=== PATIENT | male | born 2000 | race Caucasian/White ===

== ENCOUNTER → 2022-06-04 | Outpatient (CLI) | payer OTHER ==
--- NOTE | 2022-06-04 16:39 | CT ---
EXAMINATION TYPE: CT ankle LT wo con CT DLP: 312.3 mGycm, Automated exposure control for dose reduction was used. DATE OF EXAM: 06/04/2022 4:28 PM COMPARISON: . None CLINICAL INDICATION:Male, 21 years old with history of S82.302A UNSP FRACTURE OF LOWER END OF LEFT TI ARIE,; PHH, FRACTURE OF LOWER END OF LEFT TIBIA TECHNIQUE: Axial images were obtained of the left ankle . Additional coronal and sagittal reformatte d images and soft tissue and bone window were obtained for review. 3-D reconstruction was created on a separate workstation. Contrast used: None Oral contrast used: None FINDINGS: There are fractures of the distal left tibia and fibula. The oblique fracture through the d istal tibia extending from the metadiaphysis towards the distal aspect of the fibula with mild displa cement up to 4 mm. The distal tibia demonstrates comminuted fracture involving the medial malleolus which extends into t he posterior tibial plafond. There is mild depression of the fragments of the articular surface of th e distal tibia. There is soft tissue swelling throughout the foot. IMPRESSION: Trimalleolar fracture with intra-articular extension with a comminuted tibia fracture and somewhat ob liquely oriented fibular fracture. Mild depression of the fracture fragments of the tibia noted.
== END | disposition home or self-care (01) ==
LOC: RADCTMAIN 15:52
PROVIDERS: ATTEND Orthopaedic Surgery
DX: S82.832A Other fracture of upper and lower end of left fibula, initial encounter for closed fracture (principal); S82.392A Other fracture of lower end of left tibia, initial encounter for closed fracture; X58.XXXA Exposure to other specified factors, initial encounter

== ENCOUNTER → 2022-06-06 | Day surgery (SDC) | payer OTHER ==
[2022-06-05 10:06] VITALS: BMI 22.2
[~2022-06-06] MED LIST: DEXAMETHASONE SOD PHOSPHATE 4 MG/ML 1 ML VIAL IVP ONE; DEXAMETHASONE SOD PHOSPHATE 4 MG/ML 1 ML VIAL ONE; HYDROmorphone (PF) 1 MG/ML ONE; HYDROmorphone 0.5 MG/0.5 ML SYRINGE IVP PRN; KETOROLAC 15 MG/ML 1 ML VIAL IVP ONE; LACTATED RINGERS 1,000 ML IV ONE; LACTATED RINGERS 1,000 ML IV SCH; LIDOCAINE 1% (10MG/ML) FOR IV START INTRADERMA PRN; LIDOCAINE 2% INJ 20 MG/ML (2 ML VIAL) ONE; MIDAZOLAM 2 MG/2 ML VIAL IVP ONE; MIDAZOLAM 2 MG/2 ML VIAL ONE; ONDANSETRON 4 MG/2 ML VIAL IVP ONE; PHENYLEPHRINE-0.9% NACL SYG 1,000 MCG/10 ML SYRINGE ONE; PROPOFOL 10 MG/ML 20 ML VIAL IV ONE; ROPIVACAINE 5 MG/ML 30 ML VIAL ONE; SUCCINYLCHOLINE CHLORIDE 200 MG/10 ML VIAL IV ONE; ePHEDrine 50 MG/ML 1 ML VIAL ONE; fentaNYL (PF) 50 MCG/ML 2 ML AMP IVP ONE; fentaNYL (PF) 50 MCG/ML 2 ML AMP ONE
[2022-06-06 12:24] LABS: Basophils # (A) 0.1 k/uL (0-0.2); Basophils % (A) 1 %; Eosinophils # (A) 0.6 k/uL (0-0.7); Eosinophils % (A) 7 %; HCT 42.3 % (39.0-53.0); HGB 14.6 gm/dL (13.0-17.5); Lymphocytes % (A) 25 %; MCHC 34.6 g/dL (31.0-37.0); MCV 83.7 fL (80.0-100.0); Mean Platelet Volume 6.6; Monocytes # (A) 0.4 k/uL (0-1.0); Monocytes % (A) 5 %; Neutrophils # (A) 4.8 k/uL (1.3-7.7); Neutrophils % (A) 61 %; Platelet Count 234 k/uL (150-450); RBC 5.05 m/uL (4.30-5.90); RDW 13.2 % (11.5-15.5); WBC 7.9 k/uL (3.8-10.6)
--- NOTE | 2022-06-06 13:04 | P.ANPRN ---
Procedure Note - Anesthesia - Nerve Block Performed Left Adductor Canal Single Time Out Performed: Yes Date of Procedure: 06/06/22 Procedure Start Time: 12:43 Procedure Stop Time: 12:46 Location of Patient: PreOp Indication: Acute Post-Operative Pain, Requested by Surgeon Sedation Type: Sedate with meaningful contact maintained Preparation: Sterile Prep Position: Supine Catheter: None Needle Types: Pajunk Needle Gauge: 20 Ultrasound used to visualize needle placement: Yes Ultrasound used to observe medication spread: Yes Injectate: 0.5% Ropivacaine (see comment for volume) (15 ml + decadron 2 mg) Blood Aspirated: No Pain Paresthesia on Injection Noted: No Resistance on Injection: Normal Image Stored and Saved: Yes Events: Uneventful and Well Tolerated Left Popliteal Single Time Out Performed: Yes Date of Procedure: 06/06/22 Procedure Start Time: 12:47 Procedure Stop Time: 12:51 Location of Patient: PreOp Indication: Acute Post-Operative Pain, Requested by Surgeon Sedation Type: Sedate with meaningful contact maintained Preparation: Sterile Prep Position: Right Lateral Catheter: None Needle Types: Pajunk Needle Gauge: 20 Ultrasound used to visualize needle placement: Yes Ultrasound used to observe medication spread: Yes Injectate: 0.5% Ropivacaine (see comment for volume) (15 ml + decadron 2 mg) Blood Aspirated: No Pain Paresthesia on Injection Noted: No Resistance on Injection: Normal Image Stored and Saved: Yes Events: Uneventful and Well Tolerated
--- NOTE | 2022-06-06 17:18 | XR ---
Fluoroscopy INDICATION: Pain FINDINGS: Fluoroscopy time: 2 minutes 6 seconds. Images obtained: 6. IMPRESSIONS: 1. Documentation of fluoroscopy.
[2022-06-06 17:41] VITALS: TEMP 97
--- NOTE | 2022-06-06 17:42 | P.OP ---
Date of Procedure: 06/06/22 Preoperative Diagnosis: 1. Left trimalleolar ankle fracture dislocation 2. Current every day cigarette smoker Postoperative Diagnosis: Same Procedure(s) Performed: 1. Open reduction and internal fixation left trimalleolar ankle fracture dislocation 2. Manual application of joint stress by physician for radiography, left ankle 3. Application of short leg splint by physician, left ankle Anesthesia: abdirahman YOUNG Surgeon: Moi Irizarry Assurance Services Manager Health Care #1: Akbar Bernal Estimated Blood Loss (ml): 50 IV fluids (ml): 1,200 Pathology: none sent Condition: stable Disposition: PACU Indications for Procedure: The patient is a very pleasant 21-year-old male with a medical history significant for cigarette smoking who sustained a left trimalleolar ankle fracture dislocation when a 600 pound metal pole fell on his left ankle while at work. He sustained an isolated injury to his left ankle and was seen in the emergency department at [facility] where closed reduction was performed. He was placed in a splint and followed up in our office with Akbar Bernal PA-C who referred her to see me. I met with the patient and discussed both his injury films and treatment. I recommended open reduction internal fixation of his grossly unstable trimalleolar ankle fracture. He understands that he has a higher risk having a complication due to his cigarette smoking. I strongly encouraged him to quit smoking. We discussed potential risks and complications of surgery including certain at limited to risks from anesthesia, superficial infection, deep infection, delayed wound healing, damage to blood vessels or nerves, nonunion, malunion, malreduction, loss of reduction, hardware failure, symptom attic hardware, peroneal tendinitis, posttraumatic arthritis, DVT, PE, other medical complications, need for further surgery, an inability to regain preinjury level of function, and possibly loss of life or limb. The patient stands at while these are the most common complications other less common complications are possible. He provided both his verbal and written consent to go forward with surgery. Description of Procedure: The patient was identified and the operative holding and the correct left leg was marked with my initials. I reviewed the consent form with the patient and his mom. All their questions were answered. A block was given by anesthesia. The patient was then brought back to the operating room by anesthesia. He was given a general anesthetic and preoperative antibiotics. He was then carefully positioned in the lateral decubitus position with the affected left ankle up and the right side down. All bony prominences were well-padded. A ramp was placed in the left leg to facilitate imaging. The tourniquet was applied to the proximal aspect the left thigh. I verified that adequate fluoroscopy shots to be taken including both a mortise and a lateral view. The left leg was then prepped and draped in the standard sterile fashion. Prior to starting surgery t imeout was performed identifying the correct patient, operative extremity, and procedure. The patient's leg was then elevated, exsanguinated with an Esmarch bandage, and the tourniquet was inflated to 250 mmHg. I began by outlining a posterolateral approach to the ankle. Skin incision with a scalpel. Dissection was carried down carefully through subcu tissues with tenotomy scissors. The sural nerve was identified and carefully retracted. The fascia over the peroneal muscles was identified and incised longitudinally in line with the skin incision. I then bluntly developed the interval between the peroneus longus and FHL tendon. This allowed me to come back onto the posterior aspect of the distal tibia. There was thick periosteum was sharply incised. The fracture site was identified and there was early interval healing. This was carefully teased open. I was unable to fully sims in the proximal spike so attention was then turned to the fibula. The interval between the peroneal tendons and the fibula was developed and the posterior aspect of the fibula was sharply incised elevate the periosteum. Early consolidating callus and hematoma was debrided from the fracture margins. The fracture was then keyed into place and held with a [id number] reduction clamp. Attention was then turned back to the posterior lateral posterior malleolus. Through ligamentotaxis of the d istal fibula the fracture was much better aligned. I was able to sims in the proximal spike. A 2.7 mm nonlocking T plate was applied over the posterior lateral posterior malleolus. A nonlocking 2.7 mm screws placed just proximal to the fracture. Position of the plate was verified with fluoroscopy and then a second nonlocking 2.7 mm screw was placed in the most proximal hole the plate. I then placed 2 nonlocking 2.7 mm lag screws through the distal aspect of the plate across the fracture generating excellent compression. The position of the plate and reduction was verified with fluoroscopy. Attention was then turned back to the fibula. A one third tubular plate was contoured to fit along the posterior aspect of the fibula as an anti-glide plate. 3 nonlocking 3.5 mm screws were placed proximally to the fracture and one nonlocking 3.5 screw was placed in the most distal hole the plate. A nonlocking 2.7 mm lag screw was placed across the fracture generating excellent compression. Position of the hardware was verified with fluoroscopy. Attention was then turned to the medial aspect of the ankle. A longitudinal incision was made directly over the posterior aspect of the medial malleolus. Skin incision with a scalpel and dissection was carried down carefully to subcu in his tissue with tenotomy scissors. Periosteum was elevated off of the fibula. The fracture medially was identified and the periosteum was teased off to allow reduction of the superior spike. A 2.7 mm straight plate was applied as a buttress. 2 nonlocking 2.7 mm screws were placed proximally to the fracture and a single nonlocking 2.7 mm lag screw was placed just distal to the fracture through the most distal hole the plate generating excellent compression. Final fluoroscopic images were taken including a true mortise view and a lateral. The reduction appeared adequate and there was no opening of the medial clear space. A manual external rotation stress x-ray was performed and there was no opening of the medial clear space or incisura. I interpreted this as a stable ankle mortise not requiring additional fixation. Both wounds were thoroughly irrigated and closed in layers. I verified that all instrument, sponge, and sharp counts were correct. Sterile dressings were applied followed by a well-padded bulky Godinez splint with the ankle at neutral. The patient was then awoken from his anesthetic, transferred from the OR table to the [facility], and brought to recovery having held procedure well. Akbar Bernal PA-C was required as a skilled senior sales assistant throughout the procedure for patient positioning, retraction, placement of hardware, closure wound, and application of splint. Plan: The patient is discharged home as an outpatient. He is to be strict nonweightbearing in his splint. He was given narcotic pain medications for pain control and aspirin. He'll follow-up in the office in 2 weeks for splint removal, nonweightbearing x-rays of the ankle and a wound check.
[2022-06-06 18:33] VITALS: RESP 16
[2022-06-06 20:17] VITALS: BP 128/70; PULSE 68
--- NOTE | 2022-06-07 09:57 | FL ---
Intraoperative/procedural fluoroscopic services were provided. Total fluoroscopy time is 2.06 minutes seconds with a total of 6 submitted images to PACS. Please see the operative/procedural note for fur ther details.
== END | disposition home or self-care (01) ==
LOC: OR 11:35
PROVIDERS: ATTEND Orthopaedic Surgery
DX: S82.852A Displaced trimalleolar fracture of left lower leg, initial encounter for closed fracture (principal); F17.210 Nicotine dependence, cigarettes, uncomplicated; G89.18 Other acute postprocedural pain; Z86.59 Personal history of other mental and behavioral disorders; W20.8XXA Other cause of strike by thrown, projected or falling object, initial encounter
CPT/HCPCS: 27822; 64447; 64999; 76942; 85025; 73610; C1713; J2250; J0330; J1100; J0690; J2405; J3010; J1170 ×2; J2795; J1885; J2370; J2704; J2001